=== PATIENT | female | born 1945 | race Caucasian/White ===

== ENCOUNTER 2018-06-23 11:22 | Outpatient (RCR) | payer OTHER ==
[2018-06-23] MEDS ORDERED: FLUOCINONIDE 0.05% 1 EA/15 GM TUBE ONE (18:02)
[2018-06-28] MEDS ORDERED: FLUOCINONIDE 0.05% 1 EA/15 GM TUBE ONE (18:13)
== END 2018-06-28 ==
LOC: WCC 11:22
PROVIDERS: ATTEND Family Medicine Adult Medicine
DX: E11.65 Type 2 diabetes mellitus with hyperglycemia (principal); I83.10 Varicose veins of unspecified lower extremity with inflammation; I87.2 Venous insufficiency (chronic) (peripheral); R60.0 Localized edema; R60.9 Edema, unspecified; E03.9 Hypothyroidism, unspecified; E66.01 Morbid (severe) obesity due to excess calories

== ENCOUNTER 2018-07-26 14:15 | Outpatient (RCR) | payer MEDICARE, OTHER | END 2018-07-29 | LOC: WCC 14:15 | PROVIDERS: ATTEND Internal Medicine Infectious Disease | DX: E11.65 Type 2 diabetes mellitus with hyperglycemia (principal); B37.89 Other sites of candidiasis; I83.10 Varicose veins of unspecified lower extremity with inflammation; I87.2 Venous insufficiency (chronic) (peripheral); R60.9 Edema, unspecified; R60.0 Localized edema; E03.9 Hypothyroidism, unspecified; E66.01 Morbid (severe) obesity due to excess calories ==

== ENCOUNTER 2018-08-26 14:02 | Outpatient (RCR) | payer MEDICARE ==
[~2018-08-26 14:02] MED LIST: FLUOCINONIDE 0.05% 1 EA/15 GM TUBE ONE; MINERAL OIL/PETROLAT/GLYCERI 2OZ CRM ONE; MINERAL OIL/PETROLAT/GLYCERI 6OZ BTL ONE
== END 2018-08-28 ==
LOC: WCC 14:02
PROVIDERS: ATTEND Internal Medicine Infectious Disease
DX: E11.65 Type 2 diabetes mellitus with hyperglycemia (principal); I83.10 Varicose veins of unspecified lower extremity with inflammation; I87.2 Venous insufficiency (chronic) (peripheral); R60.9 Edema, unspecified; R60.0 Localized edema; E66.01 Morbid (severe) obesity due to excess calories; E03.9 Hypothyroidism, unspecified

== ENCOUNTER 2018-09-23 16:12 | Emergency (ER) | payer MEDICARE ==
[~2018-09-23] VITALS: Ht 162.6 cm; Wt 131.5 kg
== END 2018-09-23 18:38 | disposition home or self-care (01) ==
LOC: ER 16:12
DX: M79.662 Pain in left lower leg (principal); M79.661 Pain in right lower leg; I87.2 Venous insufficiency (chronic) (peripheral)
CPT/HCPCS: 93970; 99284

== ENCOUNTER 2018-09-26 11:40 | Outpatient (RCR) | payer MEDICARE ==
[~2018-09-26 11:40] MED LIST changes: +AMMONIUM LACTATE 12% LOTION 225GM BTL ONE; -MINERAL OIL/PETROLAT/GLYCERI 2OZ CRM ONE
[2018-09-26] MEDS ORDERED: MINERAL OIL/PETROLAT/GLYCERI 6OZ BTL ONE (11:47)
== END 2018-09-28 ==
LOC: WCC 11:40
PROVIDERS: ATTEND Internal Medicine Infectious Disease
DX: E11.65 Type 2 diabetes mellitus with hyperglycemia (principal); I83.10 Varicose veins of unspecified lower extremity with inflammation; I87.2 Venous insufficiency (chronic) (peripheral); R60.0 Localized edema; R60.9 Edema, unspecified; E03.9 Hypothyroidism, unspecified; E66.01 Morbid (severe) obesity due to excess calories

== ENCOUNTER 2018-10-11 13:30 | Outpatient (RCR) | payer MEDICARE ==
[~2018-10-11 13:30] MED LIST changes: -AMMONIUM LACTATE 12% LOTION 225GM BTL ONE
== END 2018-10-29 ==
LOC: WCC 13:30
PROVIDERS: ATTEND Internal Medicine Infectious Disease
DX: E11.65 Type 2 diabetes mellitus with hyperglycemia (principal); I83.10 Varicose veins of unspecified lower extremity with inflammation; I87.2 Venous insufficiency (chronic) (peripheral); I89.0 Lymphedema, not elsewhere classified; R60.0 Localized edema; R60.9 Edema, unspecified; E03.9 Hypothyroidism, unspecified; E66.01 Morbid (severe) obesity due to excess calories
CPT/HCPCS: 36415; 82948